=== PATIENT | female | born 1970 | race Caucasian/White ===

== ENCOUNTER 2025-05-03 17:36 | Inpatient (IN) ==
[2025-05-03 18:44] LABS: Basophils # (Auto) 0.02 K/mcL (0.00-0.30); Basophils % (Auto) 0.2 % (0.0-2.0); Eosinophils # (Auto) 0.02 K/mcL (0.00-0.70); Eosinophils % (Auto) 0.2 % (0.0-7.0); Hematocrit 51.6 % (34.1-44.9); Hemoglobin 17.5 g/dL (11.2-15.7); Lymphocytes # (Auto) 1.84 K/mcL (1.50-4.80); Lymphocytes % (Auto) 16.2 % (15.5-49.0); Mean Corpuscular HGB Conc 33.9 g/dL (31.0-36.0); Monocytes # (Auto) 0.76 K/mcL (0.10-0.90); Monocytes % (Auto) 6.7 % (1.0-12.0); Neutrophils % (Auto) 76.5 % (38.0-78.0); Platelet Count 359 K/mcL (140-440); RBC 5.44 M/mcL (3.59-5.38); WBC 11.3 K/mcL (4.5-11.0)
[2025-05-03 18:53] LABS: Anion Gap 13.0 (8.0-16.0); Blood Urea Nitrogen 30 mg/dL (6-20); Calcium 9.1 mg/dL (8.6-10.4); Carbon Dioxide 19 mmol/L (22-30); Chloride 95 mmol/L (96-108); Glucose 146 mg/dL (70-105); Potassium 3.7 mmol/L (3.3-5.1); Sodium 127 mmol/L (133-145)
[2025-05-03] MEDS: LACTATED RINGERS 1,000 ML IV ONE (19:17)
[2025-05-03 19:27] LABS: Phosphorous 2.9 mg/dL (2.5-4.5)
[2025-05-03 19:37] LABS: Thyroid Stimulating Hormone 9.01 uIU/mL (0.27-5.01)
[2025-05-03] MEDS ORDERED: POTASSIUM CHLORIDE 20 MEQ TABLET PO PRN ×2 (20:18)
[2025-05-03] MEDS ORDERED: ONDANSETRON 4 MG/2 ML VIAL IV PRN (20:18)
[2025-05-03] MEDS ORDERED: ACETAMINOPHEN 325 MG TABLET PO PRN (20:18)
[2025-05-03] MEDS ORDERED: IPRATROPIUM/ALBUTEROL 3 ML AMPUL.NEB NEB PRN (20:18)
[2025-05-03] MEDS ORDERED: POLYETHYLENE GLYCOL 3350 17 GM PACKET PO PRN (20:18)
[2025-05-03] MEDS ORDERED: POTASSIUM CHLORIDE 40 MEQ in DEXTROSE 5% IN WATER 500 ML IV PRN (20:18)
[2025-05-03] MEDS ORDERED: METOCLOPRAMIDE 10 MG/2 ML VIAL IV PRN (20:18)
[2025-05-03] MEDS ORDERED: MAGNESIUM SULFATE 2 GM/50 ML BAG IV PRN (20:18)
[2025-05-03] MEDS: LACTATED RINGERS 1,000 ML IV SCH (20:25)
[2025-05-03] MEDS: 0.9 % SODIUM CHLORIDE 10 ML SYRINGE IV SCH (20:26)
[2025-05-03 20:40] LABS: Bacteria,Urine Few /hpf ({null, 0}); Bilirubin,Urine NEGATIVE (Negative); Color,Urine YELLOW; Glucose,Urine (UA) NEGATIVE (Negative); Ketones,Urine NEGATIVE (Negative); Leukocyte Esterase,Urine SMALL /uL (Negative); Mucus,Urine Mod /hpf; PH,Urine 6.0 (5.0-9.0); Protein,Urine 30 mg/dL (Negative); Specific Gravity,Urine 1.025 (1.000-1.035); Urobilinogen,Urine 0.2 mg/dL
[2025-05-03 20:47] LABS: Sodium, Urine Random < 10 mmol/L
[2025-05-04 06:42] LABS: Basophils # (Auto) 0.03 K/mcL (0.00-0.30); Basophils % (Auto) 0.4 % (0.0-2.0); Eosinophils # (Auto) 0.10 K/mcL (0.00-0.70); Eosinophils % (Auto) 1.3 % (0.0-7.0); Hematocrit 46.5 % (34.1-44.9); Hemoglobin 15.8 g/dL (11.2-15.7); Lymphocytes # (Auto) 1.94 K/mcL (1.50-4.80); Lymphocytes % (Auto) 24.4 % (15.5-49.0); Mean Corpuscular HGB Conc 34.0 g/dL (31.0-36.0); Monocytes # (Auto) 0.78 K/mcL (0.10-0.90); Monocytes % (Auto) 9.8 % (1.0-12.0); Neutrophils % (Auto) 64.1 % (38.0-78.0); Platelet Count 275 K/mcL (140-440); RBC 4.87 M/mcL (3.59-5.38); WBC 8.0 K/mcL (4.5-11.0)
[2025-05-04 06:43] LABS: ALT/SGPT 93 U/L (<40); AST/SGOT 62 U/L (<32); Albumin 4.1 gm/dL (3.2-5.2); Albumin/Globulin Ratio 1.5 (1.0-2.3); Alkaline Phosphatase 102 U/L (39-117); Anion Gap 9.0 (8.0-16.0); Bilirubin,Direct 0.6 mg/dL (<0.3); Bilirubin,Total 1.3 mg/dL (0.1-1.0); Blood Urea Nitrogen 22 mg/dL (6-20); Calcium 9.1 mg/dL (8.6-10.4); Carbon Dioxide 24 mmol/L (22-30); Chloride 98 mmol/L (96-108); Globulin 2.7 gm/dL (2.2-3.7); Glucose 99 mg/dL (70-105); Phosphorous 2.7 mg/dL (2.5-4.5); Potassium 3.6 mmol/L (3.3-5.1); Sodium 131 mmol/L (133-145); Triglycerides 100 mg/dL (<150); Uric Acid 6.9 mg/dL (2.5-8.0)
[2025-05-04] MEDS: CITALOPRAM 20 MG TABLET PO SCH (10:17)
[2025-05-04] MEDS: FLUTICASONE/SALMETEROL 50/100 INHALER #14 INH SCH (10:17)
[2025-05-04] MEDS: ENOXAPARIN 40 MG/0.4 ML SYRINGE SQ SCH (10:17)
[2025-05-05 06:46] LABS: ALT/SGPT 90 U/L (<40); AST/SGOT 53 U/L (<32); Albumin 4.3 gm/dL (3.2-5.2); Albumin/Globulin Ratio 1.5 (1.0-2.3); Alkaline Phosphatase 108 U/L (39-117); Anion Gap 9.0 (8.0-16.0); Bilirubin,Direct 0.5 mg/dL (<0.3); Bilirubin,Total 1.0 mg/dL (0.1-1.0); Blood Urea Nitrogen 17 mg/dL (6-20); Calcium 9.5 mg/dL (8.6-10.4); Carbon Dioxide 27 mmol/L (22-30); Chloride 99 mmol/L (96-108); Globulin 2.9 gm/dL (2.2-3.7); Glucose 93 mg/dL (70-105); Phosphorous 2.8 mg/dL (2.5-4.5); Potassium 4.0 mmol/L (3.3-5.1); Sodium 135 mmol/L (133-145); Triglycerides 85 mg/dL (<150); Uric Acid 5.8 mg/dL (2.5-8.0)
== END 2025-05-05 11:15 | disposition home or self-care (01) | DRG 641 ==
LOC: ED 17:36 → MEDSUR 20:14
PROVIDERS: ADMIT Internal Medicine; ATTEND Internal Medicine